=== PATIENT | female | born 1960 | race Two or more races ===

== ENCOUNTER 2020-05-02 12:37 | Outpatient (CLI) | payer OTHER ==
[2020-05-02] MEDS ORDERED: CIPRO500 MG PO (12:50)
== END 2020-05-02 16:30 | disposition home or self-care (01) ==
LOC: OFIC 805 12:37
PROVIDERS: ATTEND Otolaryngology Otology & Neurotology
DX: K11.21 Acute sialoadenitis (principal); H72.91 Unspecified perforation of tympanic membrane, right ear; M54.2 Cervicalgia; H92.01 Otalgia, right ear

== ENCOUNTER 2021-07-16 13:59 | Emergency (ER) | payer OTHER ==
[~2021-07-16] VITALS: Ht 154.9 cm; Wt 67.1 kg
[~2021-07-16 13:59] MED LIST: CIPRO500 MG PO
[2021-07-16] MEDS ORDERED: GAS-X125 MG (14:21)
[2021-07-16] MEDS ORDERED: PROBIOTIC1 EAC2 PO (20:24)
[2021-07-16] MEDS ORDERED: CIPRO500 MG PO (20:24)
[2021-07-16] MEDS ORDERED: FLAGYL500MG PO (20:24)
[2021-07-16] MEDS ORDERED: DICY20TA PO (20:24)
[2021-07-16] MEDS ORDERED: PROTONIX40 MG PO (20:24)
== END 2021-07-16 21:16 | disposition home or self-care (01) ==
LOC: ER 13:59
DX: K57.92 Diverticulitis of intestine, part unspecified, without perforation or abscess without bleeding (principal)

== ENCOUNTER 2021-07-23 07:20 | Day surgery (SDC) | payer OTHER ==
[~2021-07-23 07:20] MED LIST changes: +DICY20TA PO; +FLAGYL500MG PO; +GAS-X125 MG; +PROBIOTIC1 EAC2 PO; +PROTONIX40 MG PO
== END 2021-07-23 13:25 | disposition home or self-care (01) ==
LOC: AMB-ENDOS 07:20
PROVIDERS: ATTEND Surgery
DX: D12.4 Benign neoplasm of descending colon (principal)

== ENCOUNTER 2022-08-09 01:59 | Emergency (ER) | payer OTHER ==
[~2022-08-09] VITALS: Ht 154.9 cm; Wt 65.8 kg
[2022-08-09] MEDS ORDERED: LEVSIN0.125 MG (02:17)
[2022-08-09] MEDS ORDERED: NASAL MIST126 ML (02:17)
== END 2022-08-09 12:23 | disposition home or self-care (01) ==
LOC: ER 01:59
DX: K57.92 Diverticulitis of intestine, part unspecified, without perforation or abscess without bleeding (principal)

== ENCOUNTER 2022-10-11 10:45 | Inpatient (IN) | payer OTHER ==
[~2022-10-11] VITALS: Ht 154.9 cm; Wt 68.9 kg
[~2022-10-11 10:45] MED LIST changes: +LEVSIN0.125 MG; +NASAL MIST126 ML
[2022-10-13] MEDS ORDERED: PANTOPRAZOLE SO40 MG (15:33)
[2022-10-17] MEDS ORDERED: PERCOCET 5-3251 EACH PO (10:39)
[2022-10-17] MEDS ORDERED: INTESTINEX680 M1 PO (10:40)
[2022-10-17] MEDS ORDERED: NEURONTIN300 MG PO (10:40)
[2022-10-17] MEDS ORDERED: LEVSIN/SL0.125 MG SL (10:40)
[2022-10-17] MEDS ORDERED: GAS RELIEF125 MG PO (10:41)
== END 2022-10-17 12:36 | disposition home or self-care (01) | DRG 330 ==
LOC: SURG 10-13 07:42 → O/R 10-13 07:42 → SURH 10-13 08:00 → SURG 10-13 19:19
PROVIDERS: ADMIT Surgery; ATTEND Surgery
PROC: 0DBP4ZZ Excision of Rectum, Percutaneous Endoscopic Approach (ICD-10-PCS; 2022-10-13)
PROC: 0DJD8ZZ Inspection of Lower Intestinal Tract, Via Natural or Artificial Opening Endoscopic (ICD-10-PCS; 2022-10-13)
PROC: 3E0F7SF Introduction of Other Gas into Respiratory Tract, Via Natural or Artificial Opening (ICD-10-PCS; 2022-10-13)
PROC: 0DTN4ZZ Resection of Sigmoid Colon, Percutaneous Endoscopic Approach (ICD-10-PCS; principal; 2022-10-13 08:00)
PROC: BW24Y0Z Computerized Tomography (CT Scan) of Chest and Abdomen using Other Contrast, Unenhanced and Enhanced (ICD-10-PCS; 2022-10-15)
PROC: 3E0F7GC Introduction of Other Therapeutic Substance into Respiratory Tract, Via Natural or Artificial Opening (ICD-10-PCS; 2022-10-15)
PROC: 4A12X4Z Monitoring of Cardiac Electrical Activity, External Approach (ICD-10-PCS; 2022-10-15)
DX: K57.32 Diverticulitis of large intestine without perforation or abscess without bleeding (principal); J90 Pleural effusion, not elsewhere classified; J98.11 Atelectasis; R09.02 Hypoxemia; G47.30 Sleep apnea, unspecified; Z86.010 Personal history of colon polyps